=== PATIENT | female | born 1975 | race Caucasian/White ===

== ENCOUNTER 2017-03-27 23:54 | Emergency (ER) | payer OTHER ==
[~2017-03-27] VITALS: Ht 160 cm; Wt 68.0 kg
[~2017-03-27 23:54] MED LIST: HYDR4TAB4 PO; LABE200T8 PO; LEVO500T2 PO; ONDA4TAB5 PO; PRED-429 PO; TOPI50TA PO
--- NOTE | 2017-03-27 23:56 | NUR ---
PATIENT WALKED INTO ER C/O MIGRAINE CHEUNG X4 DAYS WITH N/V THAT STARTED 2 DAYS AGO, PT IS ALERT, ORIENTED X 3, NO RESP DISTRESS NOTED OR REPORTED UPON ASSESSMENT...
[2017-03-28] MEDS ORDERED: ONDANSETRON 4 MG/2 ML VIAL IV ONE (00:30)
[2017-03-28] MEDS ORDERED: HYDROMORPHONE 1 MG/1 ML DISP.SYRIN IV ONE (00:30)
[2017-03-28 00:46] LABS: *URINE HCG, QUAL NEGATIVE (NEGATIVE)
[2017-03-28] MEDS ORDERED: ONDANSETRON 4 MG/2 ML VIAL ONE (01:05)
[2017-03-28] MEDS ORDERED: HYDROMORPHONE 1 MG/1 ML DISP.SYRIN ONE (01:05)
--- NOTE | 2017-03-28 01:20 | NUR ---
PT REQUESTING PAIN MEDICATION, NOTIFIED...
--- NOTE | 2017-03-28 01:40 | NUR ---
RECEIVED CALL FROM MD AARON, [facility]...
[2017-03-28] MEDS ORDERED: NITROGLYCERIN 0.4 MG/TAB BOTTLE SL ONE ×2 (01:45→01:57)
--- NOTE | 2017-03-28 01:54 | NUR ---
Patient discharged to home in stable conditon. Written and verbal after care instructions given. Patient verbalizes understanding of instructions. pt walked out of ER unassisted with belongings at side... Addendum: 03/28/17 at 0156 by GUMARO PT AMBULATED PRIOR TO DISCHARGE, NO C/O DIZZINESS, WEAKNESS, BP 141/89...
[2017-03-28 02:00] VITALS: BP 141/89
== END 2017-03-28 02:01 | disposition home or self-care (01) ==
LOC: ER 23:57
DX: G43.909 Migraine, unspecified, not intractable, without status migrainosus (principal); I10 Essential (primary) hypertension; J45.909 Unspecified asthma, uncomplicated; F17.200 Nicotine dependence, unspecified, uncomplicated; Z79.899 Other long term (current) drug therapy; Z88.8 Allergy status to other drugs, medicaments and biological substances; Z91.018 Allergy to other foods
CPT/HCPCS: 84703; A4663; J1170; J2405

== ENCOUNTER 2017-11-13 02:10 | Emergency (ER) | payer OTHER ==
[~2017-11-13] VITALS: Ht 160 cm; Wt 78.5 kg
[~2017-11-13 02:10] MED LIST changes: -HYDR4TAB4 PO; -LEVO500T2 PO; -TOPI50TA PO
[2017-11-13] MEDS ORDERED: AMLO5TAB4 PO (02:27)
[2017-11-13] MEDS ORDERED: BENA40TA67 PO (02:27)
[2017-11-13] MEDS ORDERED: ESZO3TAB27 PO (02:27)
[2017-11-13] MEDS ORDERED: IV NORMAL SALINE 1000 ML BAG IV ONE (03:00)
[2017-11-13] MEDS ORDERED: PROCHLORPERAZINE EDISYLATE 10 MG/2 ML VIAL IV ONE (03:00)
[2017-11-13] MEDS ORDERED: PROCHLORPERAZINE EDISYLATE 10 MG/2 ML VIAL ONE (03:07)
[2017-11-13 03:13] LABS: BASOPHILS # (AUTO) 0.1 K/uL (0.0-8.0); BASOPHILS % (AUTO) 0.6 % (0.0-2.0); EOSINOPHILS % (AUTO) 0.1 % (0.0-7.0); HEMATOCRIT 41.5 % (31.2-41.9); HEMOGLOBIN 13.8 g/dL (10.9-14.3); LYMPHOCYTES # (AUTO) 1.7 K/uL (20.0-40.0); MEAN CORPUSCULAR HEMOGLOBIN 25.8 uug (24.7-32.8); MEAN CORPUSCULAR HGB CONC 33 g/dL (32.3-35.6); MEAN CORPUSCULAR VOLUME 77.4 fL (75.5-95.3); MONOCYTES # (AUTO) 0.5 K/uL (2.0-10.0); MONOCYTES % (AUTO) 4.3 % (0.0-11.0); NEUTROPHILS # (AUTO) 9.7 K/uL (1.8-8.9); PLATELET COUNT (AUTO) 271 K/uL (179-408); RED BLOOD CELL COUNT(AUTO) 5.35 MIL/uL (3.63-4.92); WHITE BLOOD COUNT (AUTO) 11.9 K/uL (3.8-11.8)
[2017-11-13 03:22] LABS: CREATININE 1.5 mg/dL (0.6-1.3)
--- NOTE | 2017-11-13 03:35 | NUR ---
Patient is resting comfortably in bed with eyes closed
--- NOTE | 2017-11-13 04:23 | NUR ---
Patient is resting comfortably in bed with eyes closed
--- NOTE | 2017-11-13 05:31 | NUR ---
Patient discharged to home in stable conditon. Written and verbal after care instructions given. Patient verbalizes understanding of instructions.
[2017-11-13 05:32] VITALS: BP 121/61
== END 2017-11-13 05:32 | disposition home or self-care (01) ==
LOC: ER 02:14
DX: I10 Essential (primary) hypertension (principal); G93.40 Encephalopathy, unspecified; J45.909 Unspecified asthma, uncomplicated; F17.210 Nicotine dependence, cigarettes, uncomplicated; Z88.8 Allergy status to other drugs, medicaments and biological substances; Z91.018 Allergy to other foods; Z79.899 Other long term (current) drug therapy
CPT/HCPCS: 36415; 70030-TC; 84703; 85025; 85651; 85730; 93005; A4663; J0780; J7030

== ENCOUNTER 2019-09-03 11:34 | Emergency (ER) | payer BC, OTHER ==
[~2019-09-03] VITALS: Ht 160 cm; Wt 72.6 kg
[~2019-09-03 11:34] MED LIST changes: +AMLO5TAB4 PO; +BENA40TA67 PO; +ESZO3TAB27 PO
--- NOTE | 2019-09-03 11:50 | NUR ---
Per patient, she states steroids daily and took prednisone 30mg this AM for her LUPUS. ERMD notified, and he ordered to cancel the medication.
[2019-09-03] MEDS ORDERED: predniSONE 10 MG TABLET ONE (11:52)
[2019-09-03] MEDS ORDERED: predniSONE 50 MG TABLET ONE (11:52)
[2019-09-03] MEDS ORDERED: IPRATROPIUM BROMIDE 0.5 MG/2.5 ML NEBU ONE (11:56)
[2019-09-03] MEDS ORDERED: ALBUTEROL SULFATE 2.5 MG/3 ML NEBU ONE (11:56)
[2019-09-03] MEDS ORDERED: ALBUTEROL SULFATE 2.5 MG/3 ML NEBU NEB ONE (12:00)
[2019-09-03] MEDS ORDERED: IPRATROPIUM BROMIDE 0.5 MG/2.5 ML NEBU NEB ONE (12:00)
[2019-09-03] MEDS ORDERED: predniSONE 10 MG TABLET PO ONE (12:00)
--- NOTE | 2019-09-03 12:47 | NUR ---
Patient discharged to home in stable conditon. Written and verbal after care instructions given. Patient verbalizes understanding of instructions. Patient ambulated with stable gait.
[2019-09-03 12:48] VITALS: BP 121/71
== END 2019-09-03 12:49 | disposition home or self-care (01) ==
LOC: ER 11:36
DX: J20.9 Acute bronchitis, unspecified (principal); J45.909 Unspecified asthma, uncomplicated; F17.200 Nicotine dependence, unspecified, uncomplicated; Z88.8 Allergy status to other drugs, medicaments and biological substances; Z91.018 Allergy to other foods; Z79.899 Other long term (current) drug therapy
CPT/HCPCS: A4663; J3590; J7512